=== PATIENT | male | born 1990 | race Caucasian/White ===

== ENCOUNTER 2017-04-09 13:23 | Emergency (ER) | payer SELFPAY ==
[2017-04-09] MEDS ORDERED: AMOX/CLAV 875 MG TAB PO ONE (14:05)
[2017-04-09 14:30] VITALS: BP 121/100
[2017-04-09] MEDS ORDERED: AMOX-559 PO (14:40)
--- NOTE | 2017-04-09 14:50 | ER Report ---
History and Physical Time Seen By MD: 14:00 Hx. of Stated Complaint: PATIENT WAS WALKING DOG WHEN ANOTHER DOG CAME AND BIT THE PATIENT ON THE LEFT INNER BUTTOCK; PATIENT HAS ON LACERATION AND ONE PUNCTURE WOUND. HPI/ROS CHIEF COMPLAINT: Dog bite HISTORY OF PRESENT ILLNESS: 26-year-old male patient presented to the emergency room with complaint of a dog bite. Patient states that he was walking his dog this morning when 2 dogs jumped out of a car and started running towards him and his dog. 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 While he was walking way he was bitten on his buttocks by one of the dogs. Patient states that it didn't tear the skin. He does have some discomfort. He came in for evaluation and possible rabies vaccination if needed. The police were contacted prior to arrival in the emergency room. He is meant by Ofc. Matias. Allergies: Coded Allergies: No Known Drug Allergies (Unverified , 04/09/17) Home Meds Active Scripts Amoxicillin/Pot Clav 875-125 Mg Tab (AUGMENTIN 875-125 TABLET) 1 Each Tablet, 1 TAB PO Q12H, #19 TAB Prov:JILLIAN NEVAREZ FUNCTIONAL ARCHITECT 04/09/17 Past Medical/Surgical History Patient has a past medical history of right elbow fracture, occasional alcohol use. Patient has surgical history of tonsillectomy. Reviewed Nurses Notes: Yes Hx Substance Use Disorder: No Hx Alcohol Use: Yes (OCC.) Constitutional Vital Sign - Last 24 Hours 04/09/17 04/09/17 04/09/17 04/09/17 13:41 13:47 13:53 14:00 Temp 99.0 Pulse 72 Resp 18 B/P (MAP) 111/71 (84) 111/71 101/59 (73) Pulse Ox 93 94 O2 Delivery Room Air 04/09/17 04/09/17 04/09/17 14:23 14:28 14:30 Pulse 72 74 B/P (MAP) 121/100 (107) Pulse Ox 96 93 Physical Exam General appearance: Alert no distress. Respiratory: Chest is non tender, lungs are clear to auscultation. Cardiac: Regular rate and rhythm. Skin: Patient does have a puncture wound to the left by , also has an abrasion distal to that. The abrasion does not appear to be of any depth. The puncture wound also does not appear to be of significant depth. DIFFERENTIAL DIAGNOSIS: After history and physical exam differential diagnosis was considered for dogbite, rabies exposure. Medical Decision Making ED Course/Re-evaluation ED Course Patient was admitted to an exam room, history and physical were obtained. Differential diagnoses were considered. On examination patient has a puncture wound to the left buttock, with an abrasion distal. The area was flushed and cleaned. Was also dressed with bacitracin and a Band-Aid. I did speak with KimberlyAnika Matias, she was able to get in contact with a dog jboss developer. She found out that the dogs were up-to-date on the rabies vaccination and the dog will be monitored at home for the next week. I discussed this with the patient. We will go ahead and discharge him home at this time. We will start him on Augmentin to prevent any infection. He is return to the emergency room with any redness, erythema, discharge or increasing pain. The patient and his significant other verbalized understanding and agreement with plan. Decision to Disposition Date: Apr 09, 2017 Decision to Disposition Time: 15:30 Depart Departure Latest Vital Signs Vital Signs Date Time Temp Pulse Resp B/P (MAP) Pulse Ox O2 Delivery O2 Flow Rate FiO2 04/09/17 14:30 121/100 (107) 04/09/17 14:28 74 93 04/09/17 13:47 99.0 18 Room Air Impression: Primary Impression: Dog bite Condition: Improved Disposition: HOME OR SELF-CARE New Scripts Amoxicillin/Pot Clav 875-125 Mg Tab (AUGMENTIN 875-125 TABLET) 1 Each Tablet 1 TAB PO Q12H, #19 TAB Prov: JILLIAN NEVAREZ 04/09/17 Patient Instructions: Animal Bite (ED) Additional Instructions: Limit activity by pain. You may ice the area. You may change the dressing as needed. Follow up with your primary care provider in the next 1-2 weeks. Return to the ER if condition worsens. Problem Qualifiers Primary Impression: Dog bite Encounter type: initial encounter Qualified Codes: W54.0XXA - Bitten by dog , initial encounter JILLIAN NEVAREZ Apr 09, 2017 14:50
== END 2017-04-09 14:58 | disposition home or self-care (01) ==
LOC: ER 13:27
DX: S30.870A Other superficial bite of lower back and pelvis, initial encounter (principal); W54.0XXA Bitten by dog, initial encounter; Y93.K1 Activity, walking an animal; Y99.8 Other external cause status
CPT/HCPCS: 99282